=== PATIENT | male | born 1960 | race Caucasian/White ===

== ENCOUNTER 2018-09-24 17:43 | Inpatient (IN) ==
[2018-09-24] MEDS ORDERED: ROCEPHIN 1 GM in NS 50 ML IV ONE (18:10)
[2018-09-24] MEDS ORDERED: DUONEB (A & A) INH ONE (18:10)
[2018-09-24] MEDS ORDERED: NS 1,000 ML IV ONE (18:10)
[2018-09-24] MEDS ORDERED: ZITHROMAX PO ONE (18:10)
[2018-09-24] MEDS ORDERED: SOLU-MEDROL IV ONE (18:11)
[2018-09-24 19:05] LABS: BASO# 0.03 X1000 (0.0-0.2); BASO% 0.3 % (0.0-0.8); EOS# 0.23 X1000 (0.0-0.7); EOS% 2.5 % (0.0-10.0); HEMATOCRIT 38.3 % (42.0-52.0); HEMOGLOBIN 12.3 g/dL (14.0-18.0); IMM GRAN# 0.02 X1000 (0.0-0.04); IMM GRAN% 0.2 % (0.0-0.5); LYMPH# 2.36 X1000 (1.2-3.4); LYMPH% 26.1 % (20.5-51.1); MCH 31.6 PG (27-31); MCHC 32.1 g/dL (33-37); MCV 98.5 FL (81-99); MONO# 0.64 X1000 (0.11-0.59); MONO% 7.1 % (1.7-9.3); MPV 11.1 FL (7.4-10.4); NEUT# 5.77 X1000 (1.4-6.5); NEUT% 63.8 % (42.2-75.2); PLT 183 X1000 (130-400); RBC 3.89 XMIL (4.7-6.1); RDW 14.9 % (11.5-14.5); WBC 9.05 X1000 (4.8-10.8)
[2018-09-24 19:31] LABS: AGAP 8; ALB/GLOB RATIO 2.1; ALBUMIN 3.9 g/dL (3.5-5.0); ALKALINE PHOSPHATASE 54 U/L (32-122); BUN 12 mg/dL (8-22); CALCIUM 8.4 mg/dL (8.8-10.2); CHLORIDE 104 mmol/L (98-107); CK PROFILE 73 U/L (24-204); COSMO 274; ESTIMATED GFR > 60; GLUCOSE 99 mg/dL (70-104); GOT 18 U/L (10-34); GPT 15 U/L (10-44); POTASSIUM 3.3 mmol/L (3.5-5.1); SODIUM 137 mmol/L (136-145); TCO2 25 mmol/L (25-35); TOTAL BILIRUBIN 1.62 mg/dL (0.20-1.00); TOTAL PROTEIN 5.8 g/dL (6.3-8.3)
--- NOTE | 2018-09-24 20:31 | PROVIDER DOCUMENTATION ---
This chart was entered by Amparo Pierson Scribe, acting as scribe for Sergio Bill MD. HPI-Respiratory General - General Chief Complaint: Shortness of Breath Stated Complaint: low oxygen Time Seen by Provider: 09/24/18 17:55 Source: patient Allergies/Adverse Reactions: Patient Allergies Allergy/AdvReac Type Severity Reaction Status Date / Time morphine Allergy Intermediate ITCHING Verified 03/08/18 11:24 Home Medications: Home Medication List Medication Instructions Recorded Confirmed Last Taken Type ATORVAstatin [Lipitor] 40 mg PO DAILY 08/27/17 03/14/18 03/14/18 10:00 History Alprazolam 1 mg PO BID 08/27/17 03/14/18 03/14/18 10:00 History Celecoxib 200 mg PO BID 08/27/17 03/14/18 03/12/18 10:00 History Diclofenac Sodium [Voltaren] 1 gm TP PRN PRN 08/27/17 03/14/18 03/07/18 10:00 History Esomeprazole [Nexium] 40 mg PO DAILY 08/27/17 03/14/18 03/14/18 10:00 History Gabapentin 800 mg PO 5XDAY 08/27/17 03/14/18 03/14/18 10:00 History Carisoprodol 350 mg PO BID 10/14/17 03/14/18 03/14/18 10:00 History Tiotropium [place] Inhaler 1 puff INH RTDAILY 10/14/17 03/14/18 03/14/18 10:00 History [Spiriva] Tramadol [Ultram] 50 mg PO TID 10/14/17 03/14/18 03/13/18 10:00 History Fluticasone/Sal[place] 500/50 INH 1 puff INH BID 03/08/18 03/14/18 03/14/18 12:00 History [Advair 500/50 Diskus] Oxycodone HCl 1 tab PO TID 03/08/18 03/14/18 03/14/18 10:00 History Testosterone [Androgel] 1.25 gm TD DAILY 03/08/18 03/14/18 03/12/18 20:00 History Trazodone [Desyrel] 400 mg PO QHS 03/14/18 03/14/18 Unknown History Oxycodone HCl [Dazidox] 10 mg PO Q4HR PRN #35 tab 03/15/18 Unknown Rx Sulfamethoxazole/Trimethoprim 1 ea PO BID #30 tab 03/15/18 Unknown Rx [Bactrim Ds Tablet] - History of Present Illness-Resp Nature of Presenting Problem: Pt is 57/M presents to ED w/ SOB, cough and weakness. Pt has O2 4L at home as needed, but has not been using it. Pt had o2 stat at 74%. hx of COPD and asthma. Pt is a former smoker. Quality of Pain: reports: other (SOB) Severity in ED: reports: moderate Onset/Duration: reports: gradual Timing: reports: still present Cough Quality/Degree: reports: moderate Episode Frequency: chronic episodes Modifying Factors: improves with: coughing Associated Symptoms: reports: cough, short of breath. denies: wheezing Similar Symptoms Previously?: Yes Recently seen or treated by another doctor?: No Review of Systems - Adult - REVIEW OF SYSTEMS - ADULT Constitutional: reports: no symptoms reported. denies: chills, fever Eyes: reports: no symptoms reported Ears, Nose, Mouth & Throat: reports: no symptoms reported Cardiovascular: reports: no symptoms reported. denies: chest pain Respiratory: reports: cough (productive cough), shortness of breath. denies: wheezing Gastrointestinal: reports: no symptoms reported. denies: nausea, vomiting Genitourinary: reports: no symptoms reported Musculoskeletal: reports: no symptoms reported Integumentary: reports: no symptoms reported Neurological: reports: no symptoms reported. denies: dizziness/vertigo, headache/migraines Psychiatric: reports: no symptoms reported Endocrine: reports: no symptoms reported Hematologic/Lymphatic: reports: no symptoms reported Allergic/Immunologic: reports: no symptoms reported All Other Systems: Reviewed and Negative Past History - Adult - PAST MEDICAL HISTORY-ADULT Review of Records: reports: Old Records Reviewed, Nursing Assessment Review, Medications Reviewed, Social history reviewed & non-contributory. Major Childhood Illnesses: reports: denies history Cardiovascular: reports: CHF Respiratory: reports: asthma, COPD Gastrointestinal: reports: denies history Obstetrical/Gynecological: reports: denies history Genitourinary: reports: denies history Musculoskeletal: reports: denies history Neurological: reports: denies history Psychiatric: reports: anxiety, other (panic attacks) Endocrine/Immune: reports: denies history Other Conditions: reports: denies history - PRIOR SURGERIES/PROCEDURES Surgical/Procedure History: reports: reviewed, not pertinent, cholecystectomy, other (upper lobectomy) - PRIOR HOSPITALIZATIONS Prior Hospitalizations: reports: none - IMMUNIZATION STATUS Childhood Immunizations: See Nurse Assessment Flu Vaccine: See Nurse Assessment - FAMILY HISTORY Family History: reviewed, not pertinent Physical Exam-General - PHYSICAL EXAM-ADULT Initial Vital Signs Reviewed: Yes - CONSTITUTIONAL General Appearance: appears well, alert, no apparent distress - EYES Eyes: PERRL/EOMI, pink conjunctivae - HEAD, EARS, NOSE, MOUTH & THROAT HENMT: normocephalic/atraumatic, moist mucous membranes, normal ENT inspection, TMs normal, pharynx normal - NECK Neck: non-tender, full range of motion, supple, normal inspection - RESPIRATORY Respiratory: lungs clear - CARDIOVASCULAR Cardiovascular: regular rate, rhythm - GASTROINTESTINAL (ABDOMEN) Abdominal Exam: normal bowel sounds, non tender, soft - LYMPHATIC Lymphatic: no adenopathy - MUSCULOSKELETAL Back Exam: normal inspection, no CVA tenderness, no vertebral tenderness Extremity: normal range of motion, non-tender, normal gait, normal inspection - SKIN Integumentary: normal color, warm/dry - NEUROLOGIC Neurologic: grossly normal - PSYCHIATRIC Psych/Mental Status: normal mood/affect, normal thought content, normal thought process, oriented x 3 Progress - PLAN OF CARE/RESULTS Progress/Plan/Lab Results: Vital Signs - 8 hr 09/24/18 17:47 09/24/18 17:59 09/24/18 18:00 Temperature 98.5 F Pulse Rate 94 H 84 Respiratory Rate 22 13 Blood Pressure 117/72 128/71 O2 Sat by Pulse Oximetry 88 L 87 L 87 L 09/24/18 18:01 09/24/18 18:10 09/24/18 18:20 Temperature Pulse Rate 93 H 91 H 86 Respiratory Rate 15 19 16 Blood Pressure 135/83 O2 Sat by Pulse Oximetry 88 L 84 L 87 L 09/24/18 18:24 09/24/18 18:30 09/24/18 18:32 Temperature Pulse Rate 94 H 83 90 Respiratory Rate 18 18 20 Blood Pressure 102/79 O2 Sat by Pulse Oximetry 91 L 94 L 09/24/18 18:40 09/24/18 18:50 09/24/18 19:11 Temperature Pulse Rate 89 84 83 Respiratory Rate 20 14 24 Blood Pressure O2 Sat by Pulse Oximetry 88 L 87 L 90 L 09/24/18 19:13 09/24/18 19:20 09/24/18 19:30 Temperature Pulse Rate 83 80 84 Respiratory Rate 15 14 19 Blood Pressure 105/63 O2 Sat by Pulse Oximetry 89 L 89 L 90 L 09/24/18 19:31 09/24/18 19:40 Temperature Pulse Rate 82 85 Respiratory Rate 17 16 Blood Pressure 102/71 O2 Sat by Pulse Oximetry 89 L 89 L Laboratory Results - last 24 hr 09/24/18 09/24/18 09/24/18 18:46 18:46 18:46 WBC 9.05 RBC 3.89 L Hgb 12.3 L Hct 38.3 L MCV 98.5 MCH 31.6 H MCHC 32.1 L RDW Std Deviation 14.9 H Plt Count 183 MPV 11.1 H Immature Gran % (Auto) 0.2 Neut % (Auto) 63.8 Lymph % (Auto) 26.1 [place] % (Auto) 7.1 Eos % (Auto) 2.5 Baso % (Auto) 0.3 Immature Gran # (Auto) 0.02 Neut # (Auto) 5.77 Lymph # (Auto) 2.36 [place] # (Auto) 0.64 H Eos # (Auto) 0.23 Baso # (Auto) 0.03 Sodium 137 Potassium 3.3 L Chloride 104 Carbon Dioxide 25 Anion Gap 8 BUN 12 Creatinine 1.0 Estimated GFR/1.73 m2 > 60 BUN/Creatinine Ratio 12 Glucose 99 Calculated Osmolality 274 Calcium 8.4 L Total Bilirubin 1.62 H AST 18 ALT 15 Alkaline Phosphatase 54 Creatine Kinase 73 Troponin T < 0.010 Total Protein 5.8 L Albumin 3.9 Globulin 1.9 Albumin/Globulin Ratio 2.1 Orders Category Date Time Status Saline Loc NOW Care 09/24/18 18:10 Active CHEST-2 VIEWS [RAD] Stat Exams 09/24/18 18:10 Taken CBC WITH ELECTRONIC DIFF [HEME] Stat Lab 09/24/18 18:46 Completed CK PROFILE [SP CHEM] Stat Lab 09/24/18 18:46 Completed COMPREHENSIVE METABOLIC PANEL [CHEM] Stat Lab 09/24/18 18:46 Completed D-DIMER [COAG] Stat Lab 09/24/18 20:26 Ordered TROPONIN T Stat Lab 09/24/18 18:46 Completed 0.9% Sodium Chloride Inj [Ns] 1,000 ml Med 09/24/18 18:10 Discontinued IV 999 mls/hr Albuterol 2.5MG/Ipratrop 0.5MG [Duoneb (A & A)] Med 09/24/18 18:10 Discontinued 3 ml INH NOW ONE Azithromycin [Zithromax] Med 09/24/18 18:10 Discontinued 500 mg PO NOW ONE CefTRIAXONE [Rocephin] 1 gm Med 09/24/18 18:10 Discontinued 0.9% Sodium Chloride Inj [Ns] 50 ml IV NOW Methylprednisolone Sod Succ [Solu-Medrol] Med 09/24/18 18:11 Discontinued 80 mg IV NOW ONE Aerosol Treatments Routine Oth 09/24/18 18:11 Completed Aerosol Treatments Stat Oth 09/24/18 18:11 Completed EKG [EKG] Stat Ther 09/24/18 18:10 Ordered A/P: COPD exacerbation. Hypoxia. will admit to Dr Witt. neeta dc. Result Diagrams: 09/24/18 18:46 09/24/18 18:46 - XRAY 1 XRAY Study: Chest Impression: Abnormal (patchy infiltrate in R middle lobe) Departure - Departure Date of Disposition Decision: 09/24/18 Time of Disposition Decision: 20:30 DIAGNOSIS: COPD with exacerbation, Dyspnea, Hypoxia Disposition: ADMITTED INPATIENT 09 Certified Medical Emergency: Emergent Condition: Stable Additional Freetext Instructions: We have examined and treated you today on an emergency basis only. This was not a substitute for, or an effort to provide, complete medical care. In most cases, you must let your doctor check you again. Tell your doctor about any new or lasting problems. We cannot recognize and treat all injuries or illnesses in one Emergency Department visit. If you had special tests, such as X-rays or CT scans, will be reviewed by radiologist and will call you if there are any new suggestions Follow up with primary care provider in 1 to 2 days if no improvement. If you do not have a primary care provider, you need to choose one as soon as possible. Take medicines as prescribed. Monitor for any side effects or adverse events from medications. If any side effect, adverse event or rash develops, or if you suspect any other adverse reaction to the medication, then discontinue the medication immediately and contact clinic /PCP or go to the nearest ER. Narcotic meds / sedative meds instruction - patent advised not to drive, operate any machinery or go into water after taking meds as it may impair mental abilit y to react to the situation in an appropriate manner. Continue other current medicines. Follow up with PCP within 24-48 hours, or sooner if symptoms worsen or fail to improve. Patient / guardian verbalizes understanding of treatment plan, medication, and side effects and agrees with treatment plan. Patient leaves ER in stable condition and ambulatory state. Return to ER as needed. Discharge instructions reviewed verbally and given to patient in written form. Follow up with primary care provider. Referrals and Follow-Ups: Anthony Velasquez MD [Primary Care Provider] - - Critical Care Note This patient required my direct & personal management of CC.: No Attestation - Physician/ DARRYL Attestation Patient care was provided by Advanced Practice Provider:: No The physician spent face to face time with patient:: Yes Advanced Practice Provider documentation review:: Supervising physician onsite and consulted in the evaluation and care of this patient. The physician did have a face to face encounter with the patient. This chart was documented by the indicated scribe, (Amparo Pierson, Miriam) and accurately reflects the services I performed and decisions made by me, Sergio Bill MD, as attested by the provider's signature.
[2018-09-24] MEDS ORDERED: KLOR-CON PO ONE (21:36)
--- NOTE | 2018-09-24 21:52 | HISTORY AND PHYSICAL ---
PRIMARY CARE PHYSICIAN: Dr. Velasquez. CHIEF COMPLAINT: Shortness of breath. HISTORY OF PRESENTING ILLNESS: A 57-year-old male with a history of COPD on home oxygen, hyperlipidemia who presented to emergency department with several days history of worsening shortness of breath. The patient states that he was having difficulty, turned up his oxygen however he did have any improvement. He was seen in the ER, he was somewhat dyspneic and he was also having low oxygen saturations and due to his presenting symptoms, it was thought that he would need admission for further management. At the time of my examination, patient denied any headache, fever, chills, chest pain, hemoptysis, melena, but complained of shortness of breath. PAST MEDICAL HISTORY: Includes COPD, hyperlipidemia. PAST SURGICAL HISTORY: Right upper lobe lobectomy, cholecystectomy. ALLERGIES: Morphine. CURRENT MEDICATIONS: Xanax 1 mg p.o. b.i.d., Lipitor 40 mg p.o. daily, Soma 350 mg p.o. b.i.d., Celebrex 200 mg p.o. b.i.d., Nexium 40 mg p.o. daily, gabapentin 800 mg 5 times a day, oxycodone 10 mg p.o. q.4 hours, trazodone 400 mg p.o. at bedtime. SOCIAL HISTORY: Is a former smoker. History of social alcohol use. Denies any illicit drug use. FAMILY HISTORY: Positive for coronary disease mother. REVIEW OF SYSTEMS: Fourteen point review of systems is as in HPI. Other systems negative. PHYSICAL EXAMINATION: GENERAL: Cooperative, friendly male he is resting more comfortably now. VITAL SIGNS: Temperature 98.5 degrees, pulse 94, respirations 22, blood pressure 117/72, he is saturating 80%. HEENT: Atraumatic, normocephalic. Extraocular movements intact. PERRLA. NECK: No masses. CHEST: Rhonchi. CARDIOVASCULAR: Regular rate and rhythm. ABDOMEN: Soft. Positive bowel sounds. EXTREMITIES: No edema. NEURO: He is awake, alert, oriented x3. : No bladder distention. SKIN: Warm. LABORATORIES AND STUDIES: WBC 9.05, hemoglobin 12.2, hematocrit 38.3, platelets 183,000. Sodium 137, potassium 3.3, chloride 104, CO2 25, BUN is 12, creatinine 1.0, glucose 99, troponin 0.010. ASSESSMENT: 57-year-old male with a history of chronic obstructive pulmonary disease and hyperlipidemia presented to emergency department with several days history of worsening shortness of breath. He was evaluated in the emergency department. He was somewhat dyspneic and had low O2 saturation and subsequently was thought that he would need admission for further management. 1. Chronic obstructive pulmonary disease exacerbation. 2. Hyperlipidemia. PLAN: 1. We will admit patient to medical floor with telemetry. 2. Continue with having patient on IV Solu-Medrol, IV antibiotics, duo nebs. 3. Restart his home medications. 4. Put patient on DVT prophylaxis with SCDs. 5. We will continue to follow and reassess. Make further recommendation based on patient's clinical course. cc: Bhavik Witt MD
--- NOTE | 2018-09-24 21:58 | Diag Imaging Result Doc PS360 ---
EXAM: CHEST-2 VIEWS INDICATION: sob TECHNIQUE: 3 views COMPARISON: 10/14/2017 FINDINGS: There is mild stable linear scarring in the right upper lung zone. The lungs are grossly clear, otherwise. There is no discrete pleural fluid collection or pneumothorax. The cardiomediastinal silhouette and central vasculature are grossly unremarkable. IMPRESSION: No evidence of acute pathology by plain radiograph. Electronically signed by Kevin Colunga 09/24/2018 9:56 PM
[2018-09-25] MEDS ORDERED: ZOFRAN IV PRN (00:51)
[2018-09-25] MEDS: DUONEB (A & A) INH SCH ×7 (03:14→22:30)
[2018-09-25] MEDS: SOLU-MEDROL IV SCH ×3 (04:30→19:12)
[2018-09-25 07:51] LABS: BASO# 0.01 X1000 (0.0-0.2); BASO% 0.1 % (0.0-0.8); EOS# 0.01 X1000 (0.0-0.7); EOS% 0.1 % (0.0-10.0); HEMATOCRIT 40.8 % (42.0-52.0); HEMOGLOBIN 12.8 g/dL (14.0-18.0); IMM GRAN# 0.04 X1000 (0.0-0.04); IMM GRAN% 0.5 % (0.0-0.5); LYMPH% 7.7 % (20.5-51.1); MCH 31.6 PG (27-31); MCHC 31.4 g/dL (33-37); MCV 100.7 FL (81-99); MONO# 0.14 X1000 (0.11-0.59); MONO% 1.8 % (1.7-9.3); MPV 11.8 FL (7.4-10.4); NEUT# 6.97 X1000 (1.4-6.5); NEUT% 89.8 % (42.2-75.2); PLT 205 X1000 (130-400); RBC 4.05 XMIL (4.7-6.1); RDW 15.4 % (11.5-14.5); WBC 7.77 X1000 (4.8-10.8)
[2018-09-25 08:06] LABS: AGAP 9; BUN 12 mg/dL (8-22); CALCIUM 8.6 mg/dL (8.8-10.2); CHLORIDE 104 mmol/L (98-107); COSMO 281; ESTIMATED GFR > 60; GLUCOSE 239 mg/dL (70-104); SODIUM 137 mmol/L (136-145); TCO2 24 mmol/L (25-35)
[2018-09-25 08:11] LABS: BANDS 2 % (0-1); EOS 2 % (1-10); LYMPHS 8 % (21-51); MONO 2 % (1-9); SEGS 86 % (42-75)
[2018-09-25] MEDS ORDERED: VOLTAREN 1% GEL TOP PRN (11:07)
[2018-09-25] MEDS ORDERED: PATIENT'S OWN MED IM SCH (11:15)
[2018-09-25] MEDS: LIPITOR PO SCH (11:58)
[2018-09-25] MEDS: CELEBREX PO SCH ×2 (11:58→21:52)
[2018-09-25] MEDS: SOMA PO SCH ×2 (11:58→21:52)
[2018-09-25] MEDS: NEURONTIN PO SCH ×4 (11:58→21:52)
[2018-09-25] MEDS: XANAX PO SCH ×2 (11:59→21:52)
[2018-09-25] MEDS: OXY IR PO SCH ×2 (11:59→19:09)
[2018-09-25] MEDS: DEXILANT PO SCH (12:02)
--- NOTE | 2018-09-25 14:19 | PROGRESS NOTE ---
DATE: 09/25/2018 SUBJECTIVE: Mr. Brock was admitted yesterday. A patient of Dr. Velasquez, who came in shortness of breath. A 57-year-old with history of COPD, home oxygen, hyperlipidemia, who presented to the emergency department with a several-day history of worsening shortness of breath. He has been having difficulty. He turned up his oxygen, did not have any improvement, went to the emergency room, complained of dyspnea at rest. Oxygen saturations seemed to be low at home. PAST MEDICAL HISTORY: COPD on home oxygen, hyperlipidemia. PAST SURGICAL HISTORY: Right upper lobe lobectomy, cholecystectomy. ASSESSMENT AND PLAN: Chronic obstructive pulmonary disease exacerbation with some bronchospasm, hypoxemia. The patient put on IV Solu-Medrol, IV antibiotics. Seems to be better. Resting comfortably. Sleeping and breathing comfortably this afternoon. REVIEW OF ORDERS: He is on DuoNeb q.4 h. Xanax 1 mg b.i.d. Lipitor 40 mg a day. Soma 350 mg b.i.d. Celebrex 200 mg b.i.d. Dexilant 60 mg daily. He takes diclofenac gel or Voltaren gel and puts it on 4 times a day. Neurontin 800 mg he takes 5 times a day. Methylprednisolone 60 mg IV q.8 h. Oxy IR 20 mg t.i.d. He is getting azithromycin and he got 1 dose in the emergency room. I believe he was given a dose of ceftriaxone, too. His x-ray on presentation no evidence of any infiltrate. Seems to be doing better. Continue present treatment. cc: Suresh Bertrand MD
[2018-09-25] MEDS: PATIENT'S OWN MED INH SCH (18:28)
[2018-09-25] MEDS: ZITHROMAX 500 MG/NS 500 MG/250 ML IVPB IV SCH (22:54)
[2018-09-26] MEDS: DUONEB (A & A) INH SCH ×6 (03:00→21:55)
[2018-09-26] MEDS: OXY IR PO SCH ×3 (09:14→17:16)
[2018-09-26] MEDS: XANAX PO SCH ×2 (09:15→20:51)
[2018-09-26] MEDS: SOMA PO SCH ×2 (09:15→20:57)
[2018-09-26] MEDS: CELEBREX PO SCH ×2 (09:15→20:51)
[2018-09-26] MEDS: LIPITOR PO SCH (09:15)
[2018-09-26] MEDS: PATIENT'S OWN MED INH SCH (09:15)
[2018-09-26] MEDS: DEXILANT PO SCH (09:15)
[2018-09-26] MEDS: NEURONTIN PO SCH ×5 (09:15→20:51)
--- NOTE | 2018-09-26 17:52 | PROGRESS NOTE ---
DATE: 09/26/2018 SUBJECTIVE: He is a patient of Dr. Anthony Velasquez. A 57-year-old presented with shortness of breath. Has a history of COPD on home oxygen, hyperlipidemia. Presented to the emergency room after a several day history of increased shortness of breath. Admitted to through the emergency room. In the ER he was somewhat dyspneic and had low oxygen saturations and so I put him. Yesterday morning he was quite upset that nobody had seen him by 9 o'clock in the morning. When I came to see him which was closer to 12, he was sound asleep and in fact, difficult to arouse. I shook him and he slept very sound sleep. I came back later on and he was awake. He has repeatedly requested for more pain medicine recently. He has been reduced on his pain medicines in the clinic. OBJECTIVE: On today's exam he did not appear short of breath. He was eating lunch. No sign of wheezing. He was quite upset that he was not getting some pain medicine. When I asked about where his pain was, he pointed to his abdomen. I did not find any tenderness. When I asked him about his breathing, he said he did not feel it was any better. I did not see any wheezing. His respiratory rate was 12. Talking without any difficulty. ASSESSMENT AND PLAN: I discussed with him that if his breathing is giving him trouble we are going to have to decrease his sedation. Right now he is on Xanax 1 mg b.i.d. and he is getting oxycodone 20 mg 3 times a day. He got very upset with the idea that I was going to reduce his oxycodone or his Xanax. So, I told him I would leave him at the present place. If his breathing is not improving, which I do not see any problem with his air or gas exchange at this point, but if his breathing is not improving, we are going to have to cut down on the level of his pain medicine. He reported that he has recently been reduced because of Federal regulations and he refuses to go down any further on his pain medicine. He is on Neurontin 800 mg 5 times a day, he is on oxycodone IR 20 mg t.i.d., and he is on Xanax 1 mg b.i.d. I think we ought to get a blood gas in the morning, check another chest x-ray, and see if we are making any progress. His chest x- ray on arrival there was no acute evidence of any infiltrate. He has no bronchospasm at the present time and his electrolytes and renal function look unremarkable. cc: Suresh Bertrand MD
[2018-09-26] MEDS: ZITHROMAX 500 MG/NS 500 MG/250 ML IVPB IV SCH (21:57)
[2018-09-27] MEDS: DUONEB (A & A) INH SCH ×6 (02:30→23:07)
[2018-09-27 07:11] LABS: BASO# 0.01 X1000 (0.0-0.2); BASO% 0.1 % (0.0-0.8); EOS# 0.14 X1000 (0.0-0.7); EOS% 0.9 % (0.0-10.0); HEMATOCRIT 36.9 % (42.0-52.0); HEMOGLOBIN 11.3 g/dL (14.0-18.0); IMM GRAN# 0.07 X1000 (0.0-0.04); IMM GRAN% 0.4 % (0.0-0.5); LYMPH# 2.14 X1000 (1.2-3.4); LYMPH% 13.1 % (20.5-51.1); MCH 31.6 PG (27-31); MCHC 30.6 g/dL (33-37); MCV 103.1 FL (81-99); MONO# 0.99 X1000 (0.11-0.59); MPV 11.3 FL (7.4-10.4); NEUT# 13.04 X1000 (1.4-6.5); NEUT% 79.5 % (42.2-75.2); PLT 173 X1000 (130-400); RBC 3.58 XMIL (4.7-6.1); RDW 17.1 % (11.5-14.5); WBC 16.39 X1000 (4.8-10.8)
[2018-09-27 07:37] LABS: AGAP 7; BUN 20 mg/dL (8-22); CALCIUM 8.3 mg/dL (8.8-10.2); CHLORIDE 103 mmol/L (98-107); COSMO 282; CREATININE 1.1 mg/dL (0.7-1.2); ESTIMATED GFR > 60; GLUCOSE 99 mg/dL (70-104); POTASSIUM 4.3 mmol/L (3.5-5.1); SODIUM 140 mmol/L (136-145); TCO2 30 mmol/L (25-35)
[2018-09-27 08:24] LABS: ALLEN TEST YES; BE 3.1 mmoll (-3.0-3.0); BLOOD TYPE ARTERIAL; HCO3-(ACT) 27.1 mmoll (20.0-26.0); METHB 1.3 % (0.0-1.5); O2(CT) 14.5 mL/dL (15.0-23.0); PCO2(98.6) 46 mmHg (35-45); PO2(98.6) 75 mmHg (60-100); SAMPLE BLOOD; SAO2 91.1 % (95.0-100.0); THB 11.7 g/dL (11.5-17.4)
[2018-09-27 08:26] LABS: MODALITY CANNULA
[2018-09-27] MEDS: OXY IR PO SCH ×3 (08:48→21:42)
[2018-09-27] MEDS: SOMA PO SCH ×2 (08:49→21:42)
[2018-09-27] MEDS: DEXILANT PO SCH (08:49)
[2018-09-27] MEDS: CELEBREX PO SCH ×2 (08:50→21:42)
[2018-09-27] MEDS: NEURONTIN PO SCH ×5 (08:50→21:41)
[2018-09-27] MEDS: LIPITOR PO SCH (08:50)
[2018-09-27] MEDS: XANAX PO SCH ×2 (08:50→21:43)
[2018-09-27] MEDS: PATIENT'S OWN MED INH SCH (08:56)
--- NOTE | 2018-09-27 09:41 | Diag Imaging Result Doc PS360 ---
CHEST-2 VIEWS - 09/27/2018 INDICATION: sob COMPARISON: 09/24/2018 FINDINGS: Stable surgical suture lines in the right perihilar lung. There is some questionable infiltrate developing at the lateral right lung base. There is some stable interstitial scarring in the costophrenic angles. No pneumothorax or pleural effusion. Heart size is normal. IMPRESSION: Hazy infiltrate in the right lung base consistent with bronchopneumonia. Electronically signed by Laurent Sultana 09/27/2018 9:39 AM
[2018-09-27] MEDS: MAXIPIME 2 GM in NS 100 ML IV SCH (16:13)
[2018-09-27] MEDS: ZYVOX 600 MG/D5W 600 MG/300 ML IVPB IV SCH (17:26)
--- NOTE | 2018-09-27 18:57 | PROGRESS NOTE ---
DATE: 09/27/2018 SUBJECTIVE: The patient is sitting up in bed eating lunch. He states that he still feels short of breath. He is currently on 5 L of supplemental oxygen. OBJECTIVE: Vital signs: Temperature 98.6 degrees, blood pressure 124/83, heart rate 100, respirations 20, O2 saturation is 90% on 5 L nasal cannula.General: This is a chronically ill- appearing male lying in bed in no acute distress. Head normocephalic, atraumatic. Heart: S1, S2 normal. Tachycardic. Lungs: Diminished breath sounds bilaterally. No crackles. No wheezing. Abdomen: Positive bowel sounds. Soft, nontender, nondistended. Extremities: No edema, no cyanosis. No calf tenderness. Neurologic: The patient is alert and oriented x4. LABORATORY DATA: White blood cell count 16, hemoglobin 11, hematocrit 36, platelets 173,000. Sodium 140, potassium 4.3, BUN 20, creatinine 1.1, glucose 99. DIAGNOSTIC DATA: Chest x-ray shows right base infiltrate consistent with pneumonia. ASSESSMENT AND PLAN: 1. Acute on chronic hypoxemic respiratory failure. The patient has chronic obstructive pulmonary disease and he also has pneumonia. We will start the patient on cefepime and Zyvox. Continue with bronchodilator therapy. 2. Pneumonia. Intravenous antibiotics have been started. We will also order a sputum culture and blood cultures. 3. Chronic obstructive pulmonary disease exacerbation. Continue with bronchodilator therapy and supplemental oxygen. 4. Dyslipidemia. Continue on Lipitor. 5. Anxiety disorder. Continue on Xanax. 6. Deep vein thrombosis prophylaxis. We will start the patient on Lovenox. cc: MD INES Dubose
[2018-09-27] MEDS: LOVENOX SUBQ SCH (21:43)
[2018-09-28] MEDS: DUONEB (A & A) INH SCH ×6 (03:20→23:50)
[2018-09-28] MEDS: MAXIPIME 2 GM in NS 100 ML IV SCH ×2 (04:14→17:06)
[2018-09-28] MEDS: ZYVOX 600 MG/D5W 600 MG/300 ML IVPB IV SCH ×2 (04:48→17:44)
[2018-09-28] MEDS: SOLU-MEDROL IV SCH ×3 (06:54→23:53)
[2018-09-28 07:46] LABS: BASO# 0.02 X1000 (0.0-0.2); BASO% 0.2 % (0.0-0.8); EOS# 0.18 X1000 (0.0-0.7); EOS% 1.7 % (0.0-10.0); HEMATOCRIT 42.1 % (42.0-52.0); IMM GRAN# 0.14 X1000 (0.0-0.04); IMM GRAN% 1.3 % (0.0-0.5); LYMPH# 1.49 X1000 (1.2-3.4); LYMPH% 13.8 % (20.5-51.1); MCH 31.6 PG (27-31); MCHC 30.9 g/dL (33-37); MCV 102.2 FL (81-99); MONO# 0.36 X1000 (0.11-0.59); MONO% 3.3 % (1.7-9.3); MPV 11.3 FL (7.4-10.4); NEUT# 8.61 X1000 (1.4-6.5); NEUT% 79.7 % (42.2-75.2); PLT 194 X1000 (130-400); RBC 4.12 XMIL (4.7-6.1); RDW 17.1 % (11.5-14.5)
[2018-09-28 07:49] LABS: AGAP 9; BUN 19 mg/dL (8-22); CALCIUM 8.5 mg/dL (8.8-10.2); CHLORIDE 102 mmol/L (98-107); COSMO 283; ESTIMATED GFR > 60; GLUCOSE 98 mg/dL (70-104); POTASSIUM 3.8 mmol/L (3.5-5.1); SODIUM 141 mmol/L (136-145); TCO2 30 mmol/L (25-35)
[2018-09-28] MEDS ORDERED: FIORICET PO ONE (08:10)
[2018-09-28] MEDS: LIPITOR PO SCH (08:36)
[2018-09-28] MEDS: CELEBREX PO SCH ×2 (08:36→20:30)
[2018-09-28] MEDS: DEXILANT PO SCH (08:36)
[2018-09-28] MEDS: PATIENT'S OWN MED INH SCH (08:37)
[2018-09-28] MEDS: NEURONTIN PO SCH ×5 (08:37→20:31)
[2018-09-28] MEDS: OXY IR PO SCH ×3 (09:10→20:30)
[2018-09-28] MEDS: XANAX PO SCH ×2 (09:10→20:31)
[2018-09-28] MEDS: SOMA PO SCH ×2 (09:10→20:30)
--- NOTE | 2018-09-28 16:10 | PROGRESS NOTE ---
DATE: 09/28/2018 SUBJECTIVE: The patient states that he has been having a headache since last night. OBJECTIVE: Vital Signs: Temperature 98.6 degrees, blood pressure 124/74, heart rate 112, respirations 20, O2 saturation 91% on 5 L nasal cannula. General: This is a chronically ill- appearing male sitting up in bed in no acute distress. Heart: S1, S2 normal. Tachycardic. Lungs: Diminished breath sounds bilaterally. No crackles. No wheezing. Abdomen: Positive bowel sounds. Soft, nontender, nondistended. Extremities: No edema, no cyanosis. Neurologic: The patient is alert and oriented x4. No focal neurologic deficits noted. LABS: White blood cell count 10, hemoglobin 13, hematocrit 42 platelets 194. Sodium 141, potassium 3.8, chloride 102, CO2 30. BUN 19, creatinine 1, glucose 98. ASSESSMENT AND PLAN: 1. Acute on chronic hypoxemic respiratory failure. Continue to treat the underlying pneumonia and chronic obstructive pulmonary disease. We will consult Pulmonary. 2. Pneumonia. Continue with antibiotic therapy and bronchodilator therapy. 3. Chronic obstructive pulmonary disease exacerbation. Continue on intravenous steroids, bronchodilator therapy and supplemental oxygen. 4. Dyslipidemia. Continue on Lipitor. 5. Anxiety disorder. Continue on Xanax. 6. Headache. Will give the patient a dose of Fioricet and monitor his response. 7. Deep vein thrombosis prophylaxis. Continue on Lovenox. cc: Phoebe De La Cruz MD
--- NOTE | 2018-09-28 16:37 | Diag Imaging Result Doc PS360 ---
EXAM: CT HEAD W/O CONTRAST 09/28/2018 HISTORY: headaches TECHNIQUE: This exam was performed using automated exposure control, adjustment of mA or kV according to patient size, and/or use of iterative reconstruction technique. COMMENT: There are no previous studies available for comparison. There is no evidence of mass effect, bleed, abnormal extra-axial fluid collection, or hydrocephalus. The visualized paranasal sinuses are clear. The calvarium is intact. IMPRESSION: No evidence of acute intracranial disease. Electronically signed by Dsehawn Antonio 09/28/2018 4:34 PM
--- NOTE | 2018-09-28 19:51 | CONSULTATION ---
DATE OF CONSULTATION: 09/28/2018 REQUESTING PROVIDER: Dr. Phoebe De La Cruz. REASON FOR CONSULTATION: Pneumonia. HISTORY OF PRESENT ILLNESS: This is a 57-year-old male with a medical history of COPD on home oxygen, asthma, anxiety, congestive heart failure, hyperlipidemia, chronic back pain, and gastroesophageal reflux disease. He presented to the ER on 09/24/2018 with worsening shortness of breath, cough and weakness. Initial workup in the ER revealed COPD exacerbation. He has been admitted to the medical floor for further evaluation and management. The patient currently is resting in bed. He initially appears anxious and easily to get upset. Later, he becomes very pleasant and cooperative. He is on nasal cannula at 5 L/minute and tolerates well. He had been on Ventimask from September 24 to September 26. He reports he is feeling better, but he still has severe shortness of breath with minimal activities. He shows some signs of confusion at times and pulls off nasal cannula several times during my visit. He reports he had severe headache at an earlier time and it is getting better now. He reports chronic cough with sputum at times, chronic fatigue and dyspnea on exertion. He has no wheezing, chest pain, palpitation, dizziness, vertigo, nausea, vomiting, constipation or diarrhea. PAST MEDICAL HISTORY: 1. COPD on home oxygen as needed since 08/2017, followed by our office. Last PFT on 09/01/2018 showed minimal COPD with FEV1 81% of predicted. 2. Asthma. 3. Anxiety 4. Congestive heart failure 5. Hyperlipidemia . 6. Chronic back pain. 7. Gastroesophageal reflux disease. 8. Drug-induced erectile dysfunction. 9. Hypogonadism. PAST SURGICAL HISTORY: 1. Right upper lobectomy over 16 years ago. 2. Cholecystectomy. 3. Artificial erection while injection of pharmacologic agent and insertion of inflatable penile prosthesis on 03/14/2018. SOCIAL HISTORY: The patient lives alone at home. He is a former smoker and had smoked for 6-1/2 years totally. He quit smoking a long time ago. He drinks occasionally. He has no history of illicit drug use. FAMILY HISTORY: Positive for coronary artery disease, diabetes and lung cancer. ALLERGIES: Morphine. REVIEW OF SYSTEMS: A 10-point review of systems was conducted and the pertinent is listed within the HPI. Otherwise, noncontributory. PHYSICAL EXAMINATION: Vital Signs: Temperature 99.0, blood pressure 134/83, pulse 124, respiratory rate 20, oxygen saturation 91% on nasal cannula at 5 L/minute. General: Chronically ill-appearing, mildly anxious, resting in bed. Appears older than stated age. HEENT: Atraumatic. Trachea midline. Mucosa pink and slightly dry. Respiratory: Respirations even and unlabored. Symmetrical excursion. Auscultation reveals diminished breathing sounds bilaterally. Cardiovascular: Regular rate and rhythm. Gastrointestinal: Normoactive bowel sounds in all 4 quadrants. Soft, nontender, nondistended. Extremities: No pedal edema. No cyanosis, no clubbing. Dorsalis pedis 1+ bilaterally. Neurologic: Alert and oriented x 3 with confusion noted at times. Speech fluent. Follows commands. LAB DATA: White blood cells 10.80, hemoglobin 13.0, hematocrit 42.1, platelets 194,000. Sodium 141, potassium 3.8, chloride 102, carbon dioxide 30, BUN 19, creatinine 1.0, glucose 98. ABG: pH 7.40, pCO2 46, PO2 75, HC03 27.1, base excess 3.1 and oxyhemoglobin 88.0. IMAGING DATA: Chest x-ray on 09/27/2018 showed hazy infiltrate in the right lung base consistent with bronchopneumonia. ASSESSMENT: This is a 57-year-old male with a medical history of COPD on home oxygen, asthma, hyperlipidemia, chronic back pain, gastroesophageal reflux disease, anxiety and congestive heart failure. He has been admitted to the medical floor since 09/24/2018 with COPD exacerbation, bronchospasm and acute on chronic hypoxemic respiratory failure. 1. Acute on chronic hypoxemic respiratory failure. 2. Bronchopneumonia in the right lower lung zone. 3. Chronic obstructive pulmonary disease. PLAN: 1. Continue supplemental oxygen. 2. Continue antibiotic, steroid and bronchodilators. 3. Follow up with CBC, BMP, sputum culture and blood culture. 4. CXR and ABG if indicated. 5. Continue DVT prophylaxis. 6. Further recommendations pending hospital course. Thank you for the courtesy of this consult. Dictated by ODILIA Vargas for Corin An MD cc: ODILIA Vargas MD [facility]
[2018-09-28] MEDS: LOVENOX SUBQ SCH ×2 (20:31→20:40)
[2018-09-28] MEDS: MIRALAX PO SCH (20:31)
[2018-09-29] MEDS: DUONEB (A & A) INH SCH ×6 (03:55→23:15)
[2018-09-29] MEDS: MAXIPIME 2 GM in NS 100 ML IV SCH ×2 (04:02→15:43)
[2018-09-29] MEDS: ZYVOX 600 MG/D5W 600 MG/300 ML IVPB IV SCH ×2 (04:02→17:22)
[2018-09-29] MEDS: SOLU-MEDROL IV SCH ×3 (06:29→21:31)
[2018-09-29] MEDS: DEXILANT PO SCH (06:29)
[2018-09-29 07:21] LABS: BASO# 0.03 X1000 (0.0-0.2); BASO% 0.2 % (0.0-0.8); HEMATOCRIT 35.9 % (42.0-52.0); HEMOGLOBIN 11.4 g/dL (14.0-18.0); IMM GRAN# 0.21 X1000 (0.0-0.04); IMM GRAN% 1.1 % (0.0-0.5); LYMPH% 6.4 % (20.5-51.1); MCH 31.9 PG (27-31); MCHC 31.8 g/dL (33-37); MCV 100.6 FL (81-99); MONO# 0.81 X1000 (0.11-0.59); MONO% 4.3 % (1.7-9.3); MPV 11.3 FL (7.4-10.4); NEUT# 16.44 X1000 (1.4-6.5); PLT 229 X1000 (130-400); RBC 3.57 XMIL (4.7-6.1); RDW 16.7 % (11.5-14.5); WBC 18.69 X1000 (4.8-10.8)
[2018-09-29 07:40] LABS: AGAP 9; BUN 19 mg/dL (8-22); CALCIUM 9.2 mg/dL (8.8-10.2); CHLORIDE 99 mmol/L (98-107); COSMO 284; ESTIMATED GFR > 60; GLUCOSE 201 mg/dL (70-104); POTASSIUM 4.2 mmol/L (3.5-5.1); SODIUM 138 mmol/L (136-145); TCO2 30 mmol/L (25-35)
[2018-09-29] MEDS: NEURONTIN PO SCH ×2 (08:51→11:55)
[2018-09-29] MEDS: LIPITOR PO SCH (08:51)
[2018-09-29] MEDS: OXY IR PO SCH ×3 (08:51→21:30)
[2018-09-29] MEDS: XANAX PO SCH ×2 (08:51→21:30)
[2018-09-29] MEDS: CELEBREX PO SCH ×2 (08:51→21:33)
[2018-09-29] MEDS: MIRALAX PO SCH ×2 (08:51→21:35)
[2018-09-29] MEDS: SOMA PO SCH ×2 (08:51→21:30)
[2018-09-29] MEDS: PATIENT'S OWN MED INH SCH (10:05)
[2018-09-29] MEDS ORDERED: MILK OF MAGNESIA PO ONE (15:36)
[2018-09-29] MEDS ORDERED: MOTRIN PO ONE (15:36)
[2018-09-29] MEDS ORDERED: MUCINEX PO ONE (15:36)
--- NOTE | 2018-09-29 18:31 | PROGRESS NOTE ---
DATE: 09/29/2018 SUBJECTIVE: The patient is complaining of a headache. He does continue to complain of shortness of breath, also. OBJECTIVE: Vital Signs: Temperature 97.4 degrees, blood pressure 151/83, heart rate 90, respirations 18, O2 saturation 92% on 4 L nasal cannula. General: This is a chronically ill- appearing elderly male, sitting up in bed in no acute distress. Heart: S1, S2 normal. Regular rate and rhythm. Lungs: Equal air entry bilaterally. No wheezing. No rales. No rhonchi. Abdomen: Positive bowel sounds. Soft, nontender, nondistended. Extremities: No edema, no cyanosis. Neurologic: The patient is forgetful, but alert and oriented. LABS: White blood cell count 18, hemoglobin 11, hematocrit 35, platelets 229,000. Sodium 138, potassium 4.2, chloride 99, CO2 30, BUN 19, creatinine 1, glucose 201. ASSESSMENT AND PLAN: 1. Acute on chronic hypoxemic respiratory failure. Continue to treat the pneumonia and chronic obstructive pulmonary disease. 2. Pneumonia. Continue with antibiotics and bronchodilator therapy. 3. Chronic obstructive pulmonary disease exacerbation. Continue on intravenous steroids, bronchodilator therapy, and supplemental oxygen. 4. Anxiety disorder. Continue on Xanax. 5. Headaches. The patient's head CT was negative. Will start Topamax. 6. Deep vein thrombosis prophylaxis. Continue on Lovenox. 7. The plan of care was discussed with the patient today at the bedside. cc: Phoebe De La Cruz MD
[2018-09-29] MEDS: LOVENOX SUBQ SCH ×2 (21:31→21:37)
[2018-09-29] MEDS: MUCINEX PO SCH (21:46)
[2018-09-30] MEDS: DUONEB (A & A) INH SCH ×4 (03:06→15:52)
[2018-09-30] MEDS: FIORICET PO PRN ×2 (04:19→09:19)
[2018-09-30] MEDS: ZYVOX 600 MG/D5W 600 MG/300 ML IVPB IV SCH (04:20)
[2018-09-30] MEDS: MAXIPIME 2 GM in NS 100 ML IV SCH ×2 (04:20→15:32)
--- NOTE | 2018-09-30 06:34 | Diag Imaging Result Doc PS360 ---
EXAM: CHEST-1 VIEW HISTORY: SOB TECHNIQUE: Chest single view COMPARISON: 09/27/2018 FINDINGS: The lungs are well expanded. The heart is not enlarged. The vessels are mildly distended. There are no infiltrates. Atelectasis or scarring in the mid right lung. No effusion identified. IMPRESSION: Mild pulmonary edema. No definite pneumonia. Electronically signed by Ervin Casas 09/30/2018 6:31 AM
[2018-09-30] MEDS: SOLU-MEDROL IV SCH (06:54)
[2018-09-30] MEDS: DEXILANT PO SCH (06:54)
[2018-09-30 07:18] LABS: HEMATOCRIT 37.7 % (42.0-52.0); HEMOGLOBIN 11.3 g/dL (14.0-18.0); MCH 31.9 PG (27-31); MCV 106.5 FL (81-99); MPV 11.8 FL (7.4-10.4); RBC 3.54 XMIL (4.7-6.1); RDW 17.9 % (11.5-14.5); WBC 17.28 X1000 (4.8-10.8)
[2018-09-30 07:49] LABS: AGAP 10; BUN 23 mg/dL (8-22); CALCIUM 8.6 mg/dL (8.8-10.2); CHLORIDE 101 mmol/L (98-107); COSMO 281; CREATININE 0.9 mg/dL (0.7-1.2); ESTIMATED GFR > 60; GLUCOSE 202 mg/dL (70-104); SODIUM 136 mmol/L (136-145); TCO2 25 mmol/L (25-35)
[2018-09-30] MEDS ORDERED: TOPAMAX PO SCH (09:00)
[2018-09-30] MEDS: SOMA PO SCH (09:12)
[2018-09-30] MEDS: LIPITOR PO SCH (09:12)
[2018-09-30] MEDS: MUCINEX PO SCH (09:13)
[2018-09-30] MEDS: XANAX PO SCH (09:13)
[2018-09-30] MEDS: OXY IR PO SCH ×2 (09:13→15:31)
[2018-09-30] MEDS: MIRALAX PO SCH (09:13)
[2018-09-30] MEDS: CELEBREX PO SCH (09:13)
[2018-09-30] MEDS: PATIENT'S OWN MED INH SCH (09:26)
[2018-09-30 11:54] LABS: HEMOGLOBIN A1C 3.9 % (4.8-6.0)
[2018-09-30] MEDS ORDERED: IMITREX PO ONE (13:02)
[2018-09-30 14:00] VITALS: BP 129/82
[2018-09-30] MEDS ORDERED: TORADOL IV ONE (16:50)
--- NOTE | 2018-09-30 17:26 | PROGRESS NOTE ---
DATE: 09/30/2018 SUBJECTIVE: The patient is complaining of a headache. OBJECTIVE: Vital Signs: Temperature 97.8 degrees, blood pressure 129/82, heart rate 92, respirations 18, O2 saturation 91% on 5 L nasal cannula. General: This is a chronically ill- appearing, elderly male lying in bed in no acute distress. Heart: S1, S2. Normal. Lungs: Equal air entry bilaterally. No crackles. No rales. Abdomen: Positive bowel sounds. Soft, nontender, nondistended. Extremities: No edema, no cyanosis. Neurologic: The patient is alert and oriented. LABS: White blood cell count 17, hemoglobin 11, hematocrit 37, platelets 144. Sodium 136, potassium 5, BUN 23, creatinine 0.6, glucose 202. Chest x-ray shows mild pulmonary edema. ASSESSMENT AND PLAN: 1. Acute on chronic hypoxemic respiratory failure. 2. Pneumonia. Continue with antibiotics and bronchodilator therapy. 3. Persistent headache. Will give the patient a dose of Imitrex and monitor his response. Continue on Topamax. We will also consult with Neurology. 4. Chronic obstructive pulmonary disease exacerbation. Continue on IV steroids, bronchodilator therapy and supplemental oxygen. 5. Anxiety disorder. Continue on Xanax. 6. Leukocytosis. This is likely steroid induced. We will start weaning the patient's steroids. 7. Steroid-induced hyperglycemia. We will monitor the patient's blood sugar closely. 8. Constipation. Continue with scheduled laxative therapy. 9. Deep vein thrombosis prophylaxis. Continue on Lovenox. cc: Phoebe De La Cruz MD
[2018-09-30] MEDS ORDERED: SOLU-MEDROL IV SCH (18:00)
--- NOTE | 2018-10-10 20:02 | DISCHARGE SUMMARY ---
ADMISSION DATE: 09/24/2018 DISCHARGE DATE: 09/30/2018 FINAL DISCHARGE DIAGNOSES: 1. Acute on chronic hypoxemic respiratory failure. 2. Pneumonia. 3. Chronic obstructive pulmonary disease. 4. Anxiety disorder. 5. Steroid-induced hyperglycemia. 6. Leukocytosis. 7. Constipation. CONSULTATIONS: Pulmonary consultation, with Dr. An. IMAGIN. Portable chest x-ray, performed on 09/24/2018, that revealed no acute pathology. 2. Head CT, performed on 09/28/2018, which revealed no acute disease. 3. Chest x-ray, performed on 09/30/2018, which revealed mild pulmonary edema. HOSPITAL COURSE: Mr. Brock is a 58-year-old male, with a history of multiple medical problems, who presented to the ER with a chief complaint of shortness of breath and cough. On admission, a chest x-ray was done that was noted to be unremarkable. The patient was admitted and started on IV steroids, antibiotics, scheduled bronchodilator therapy and supplemental oxygen. The patient required a high amount of supplemental oxygen, so a repeat x-ray was done that revealed right lobe pneumonia. In light of this finding, the patient's antibiotics were adjusted and Pulmonary was consulted. The patient slowly improved over the course of the hospital stay. However, the patient opted to leave against medical advice on 09/30/2018 because he stated that he did not like the food in the hospital. The patient was advised that he was not cleared for discharge yet. The patient stated that he was willing to take the risk of leaving the hospital before his treatment plan was complete. The patient left the hospital against medical advice. cc: MD Anthony Dubose MD
== END 2018-09-30 17:59 | disposition left against medical advice (07) | DRG 193 ==
LOC: 3N 17:43 → ED 17:43 → SUATTDRO 22:53 → OBSVTOIN 22:53
PROVIDERS: ATTEND Internal Medicine
CPT/HCPCS: 70450; 71010; 71020; 71045; 71046; 80048; 80053; 82550; 82805; 83036; 84484; 85025; 85027; 85379; 87040; 93005; 94640; 94761; 94799; 96361; 96365; 96366; 96375; 99285; A9270; J0456; J0692; J0696; J1650; J2020; J2920; J2930; J7030

== ENCOUNTER 2018-10-11 15:56 | Inpatient (IN) ==
[2018-10-11] MEDS ORDERED: LEVAQUIN 750 MG/D5W 750 MG/150 ML IVPB IV SCH (17:00)
[2018-10-11 17:32] LABS: URINE SOURCE CLEAN CATCH
[2018-10-11 17:44] LABS: BILIRUBIN URINE NEGATIVE (NEGATIVE); BLOOD URINE NEGATIVE (NEGATIVE); COLOR YELLOW; GLUCOSE URINE NEGATIVE (NEGATIVE); KETONE URINE NEGATIVE (NEGATIVE); LEUKOCYTES URINE NEGATIVE (NEGATIVE); NITRITE URINE NEGATIVE (NEGATIVE); PROTEIN URINE NEGATIVE (NEGATIVE); SP GRAVITY URINE 1.007; TURBIDITY URINE CLEAR (CLEAR); UROBILINOGEN URINE NORMAL (NORMAL)
[2018-10-11 17:45] LABS: UR EPITHELIAL CELLS <10 /HPF (<10); URINE BACTERIA NEGATIVE /HPF; URINE RBC <10 /HPF (<10); URINE WBC <10 /HPF (<10)
[2018-10-11 17:45] LABS: BASO# 0.03 X1000 (0.0-0.2); BASO% 0.2 % (0.0-0.8); EOS# 0.14 X1000 (0.0-0.7); EOS% 0.8 % (0.0-10.0); HEMATOCRIT 34.6 % (42.0-52.0); HEMOGLOBIN 10.9 g/dL (14.0-18.0); IMM GRAN% 0.3 % (0.0-0.5); LYMPH# 1.11 X1000 (1.2-3.4); LYMPH% 6.1 % (20.5-51.1); MCH 31.4 PG (27-31); MCHC 31.5 g/dL (33-37); MCV 99.7 FL (81-99); MONO# 0.59 X1000 (0.11-0.59); MONO% 3.2 % (1.7-9.3); MPV 10.8 FL (7.4-10.4); NEUT# 16.34 X1000 (1.4-6.5); NEUT% 89.4 % (42.2-75.2); PLT 186 X1000 (130-400); RBC 3.47 XMIL (4.7-6.1); RDW 19.2 % (11.5-14.5); WBC 18.26 X1000 (4.8-10.8)
[2018-10-11 17:46] LABS: IMM GRAN# 0.05 X1000 (0.0-0.04)
--- NOTE | 2018-10-11 17:53 | PROVIDER DOCUMENTATION ---
This chart was entered by Araceli Bruno Scribe, acting as scribe for Saravanan Oglesby MD. HPI-General Adult - General Chief Complaint: General Adult Stated Complaint: DIZZY/LIGHT HEADED/RX REQUEST Time Seen by Provider: 10/11/18 16:50 Source: patient Allergies/Adverse Reactions: Patient Allergies Allergy/AdvReac Type Severity Reaction Status Date / Time morphine Allergy Intermediate ITCHING Verified 03/08/18 11:24 Home Medications: Home Medication List Medication Instructions Recorded Confirmed Last Taken Type ATORVAstatin [Lipitor] 40 mg PO DAILY 08/27/17 09/24/18 03/14/18 10:00 History Alprazolam 1 mg PO BID 08/27/17 09/24/18 03/14/18 10:00 History Celecoxib 200 mg PO BID 08/27/17 09/24/18 03/12/18 10:00 History Diclofenac Sodium [Voltaren] 1 gm TP PRN PRN 08/27/17 09/24/18 03/07/18 10:00 History Gabapentin 800 mg PO 5XDAY 08/27/17 09/24/18 03/14/18 10:00 History Carisoprodol 350 mg PO BID 10/14/17 09/24/18 03/14/18 10:00 History Tramadol [Ultram] 100 mg PO BID 10/14/17 09/25/18 03/13/18 10:00 History Trazodone [Desyrel] 500 mg PO QHS 03/14/18 09/25/18 Unknown History Dexlansoprazole [Dexilant] 60 mg PO DAILY 09/24/18 09/24/18 Unknown History Oxycodone HCl [Dazidox] 20 mg PO TID 09/24/18 09/24/18 Unknown History Testosterone Cypionate 0.75 ml IM DIRECTED 09/24/18 09/24/18 Unknown History Fluticasone/Umeclidin/Vilanter 1 puff INH DAILY 09/25/18 09/25/18 Unknown History [Joann Vo 100-62.5-25] - History of Present Illness -Gen Adult Nature of Presenting Problems: Patient is a 58 year old male who presents with lightheadedness, dizziness and fever that started this morning. States he thinks he has pneumonia. Does not report shortness of breath. Dr Morales called to ask for patient to be readmitted for worsening of pneumonia. Location of Pain/Injury: reports: none Pain Radiation: reports: no radiation Quality of Pain: reports: none Severity: reports: mild Onset/Duration: reports: this morning Timing: reports: still present Context/Activities at Onset: reports: light activity Modifying Factors: improves with: coughing Associated Symptoms: reports: dizziness, fever/chills (fever), other (lightheadedness) Similar Symptoms Previously?: Yes Recently seen or treated by another doctor?: Yes Review of Systems - Adult - REVIEW OF SYSTEMS - ADULT Constitutional: reports: see HPI, fever. denies: chills, fatique Eyes: reports: no symptoms reported Ears, Nose, Mouth & Throat: reports: no symptoms reported Cardiovascular: reports: no symptoms reported Respiratory: reports: no symptoms reported Gastrointestinal: reports: no symptoms reported Genitourinary: reports: no symptoms reported Musculoskeletal: reports: no symptoms reported Integumentary: reports: no symptoms reported Neurological: reports: see HPI, dizziness/vertigo (dizziness), other (lightheadedness). denies: headache/migraines, seizure, syncope Psychiatric: reports: no symptoms reported Endocrine: reports: no symptoms reported Hematologic/Lymphatic: reports: no symptoms reported Allergic/Immunologic: reports: no symptoms reported All Other Systems: Reviewed and Negative Past History - Adult - PAST MEDICAL HISTORY-ADULT Review of Records: reports: Old Records Reviewed, Nursing Assessment Review, Medications Reviewed, Social history reviewed & non-contributory. Major Childhood Illnesses: reports: denies history Cardiovascular: reports: CHF, hyperlipidemia Respiratory: reports: asthma, COPD, pneumonia Gastrointestinal: reports: denies history Obstetrical/Gynecological: reports: denies history Genitourinary: reports: denies history Musculoskeletal: reports: denies history Neurological: reports: denies history Psychiatric: reports: anxiety, other (panic attacks) Endocrine/Immune: reports: denies history Other Conditions: reports: denies history - PRIOR SURGERIES/PROCEDURES Surgical/Procedure History: reports: reviewed, not pertinent, cholecystectomy, other (upper lobectomy) - PRIOR HOSPITALIZATIONS Prior Hospitalizations: reports: none - IMMUNIZATION STATUS Childhood Immunizations: See Nurse Assessment Flu Vaccine: See Nurse Assessment - FAMILY HISTORY Family History: reviewed, not pertinent - SOCIAL HISTORY Smoking: cigarettes (former) Substance Use: alcohol Alcohol Use Frequency: occasionally Living Situation: family Physical Exam-General - PHYSICAL EXAM-ADULT Initial Vital Signs Reviewed: Yes - CONSTITUTIONAL General Appearance: alert, no apparent distress. negative: lethargic, slow to respond - HEAD, EARS, NOSE, MOUTH & THROAT HENMT: normocephalic/atraumatic, moist mucous membranes. negative: angioedema, hearing deficit - RESPIRATORY Respiratory: chest non-tender, normal breath sounds, decreased breath sounds (Lt lower). negative: crackles, stridor, wheezing - CARDIOVASCULAR Cardiovascular: normal peripheral pulses, regular rate, rhythm. negative: tachycardia, systolic murmur - GASTROINTESTINAL (ABDOMEN) Abdominal Exam: normal bowel sounds, non tender, soft. negative: guarding, rebound - MUSCULOSKELETAL Extremity: non-tender, normal inspection. negative: deformity, erythema, swelling - SKIN Integumentary: normal color, normal turgor, warm/dry. negative: cyanosis, ecchymosis, erythema, jaundice - NEUROLOGIC Neurologic: grossly normal. negative: aphasia, facial droop - PSYCHIATRIC Psych/Mental Status: normal mood/affect, oriented x 3. negative: anxious Progress - PLAN OF CARE/RESULTS Progress/Plan/Lab Results: Vital Signs - 8 hr 10/11/18 15:59 Temperature 99.3 F Pulse Rate 99 H Respiratory Rate 17 Blood Pressure 125/81 O2 Sat by Pulse Oximetry 92 L Orders Category Date Time Status CHEST-1 VIEW [RAD] Stat Exams 10/11/18 16:50 Ordered BLOOD CULTURE [BLDCUL] Stat Lab 10/11/18 16:50 Uncollected CBC WITH ELECTRONIC DIFF [HEME] Stat Lab 10/11/18 16:50 Uncollected COMPREHENSIVE METABOLIC PANEL [CHEM] Stat Lab 10/11/18 16:50 Uncollected URINALYSIS [URINALYSIS] Stat Lab 10/11/18 16:50 Uncollected EKG [EKG] Stat Ther 10/11/18 16:50 Ordered Result Diagrams: 10/11/18 17:15 - XRAY 1 XRAY Study: Chest Impression: Abnormal, See EMR Report ( Patient: LANG PATEL Date: 10/11/18MR#: [id number] : 1960ADM Status: [facility]#: [id number] Age/Sex: 58/MRoom/Bed: Loc: RAD Ordering Physician: Anthony Velasquez MD Family Physician: Anthony Velasquez MD Reason for Procedure: PNA F/U ___ Signed EXAM: CHEST-2 VIEWS HISTORY: PNA F/U TECHNIQUE: Chest two views 10/01/2018 COMPARISON: None. FINDINGS: Interval development of dense infiltrates in the mid and lower left lung. The right lung remains well expanded and clear. No cardiomegaly. No pulmonary edema. There are sutures in the mid right lung. IMPRESSION: Development of left-sided pneumonia. Electronically signed by Ervin Casas 10/11/2018 3:58 PM 10/11/18 1558 Interpreting Physician: Ervin Casas MD Dictated Date/Time: 10/11/18 1557 cc: Anthony Velasquez MD; Anthony Velasquez MD) - CONSULTS/PCP/HOSPITALIST Notification #1 *Consult/PCP/Hospitalist*: Dr. Vincent Time Discussed: 17:47 Reason/Comments: Dr. Oglesby consulted with Dr. Vincent about patient. Consult Disposition: Admit Departure - Departure Date of Disposition Decision: 10/11/18 Time of Disposition Decision: 17:47 DIAGNOSIS: Dyspnea, Pneumonia Disposition: ADMITTED INPATIENT 09 Certified Medical Emergency: Emergent Condition: Fair Referrals and Follow-Ups: Anthony Velasquez MD [Primary Care Provider] - - Critical Care Note This patient required my direct & personal management of CC.: No Attestation - Physician/ DARRYL Attestation Patient care was provided by Advanced Practice Provider:: No The physician spent face to face time with patient:: Yes Advanced Practice Provider documentation review:: Supervising physician onsite and consulted in the evaluation and care of this patient. The physician did have a face to face encounter with the patient. This chart was documented by the indicated scribe, (Araceli Bruno Scribe) and accurately reflects the services I performed and decisions made by me, Saravanan Oglesby MD, as attested by the provider's signature.
[2018-10-11] MEDS ORDERED: LEVAQUIN 500 MG/D5W 500 MG/100 ML IVPB IV ONE (17:55)
[2018-10-11 18:15] LABS: AGAP 9; ALB/GLOB RATIO 1.6; ALBUMIN 4.2 g/dL (3.5-5.0); ALKALINE PHOSPHATASE 62 U/L (32-122); BUN 12 mg/dL (8-22); CALCIUM 8.8 mg/dL (8.8-10.2); CHLORIDE 99 mmol/L (98-107); COSMO 269; CREATININE 1.1 mg/dL (0.7-1.2); ESTIMATED GFR > 60; GLUCOSE 91 mg/dL (70-104); GOT 15 U/L (10-34); GPT 16 U/L (10-44); POTASSIUM 3.7 mmol/L (3.5-5.1); SODIUM 135 mmol/L (136-145); TCO2 27 mmol/L (25-35); TOTAL BILIRUBIN 1.17 mg/dL (0.20-1.00); TOTAL PROTEIN 6.8 g/dL (6.3-8.3)
[2018-10-11 18:30] LABS: ALLEN TEST YES; BE 1.2 mmoll (-3.0-3.0); BLOOD TYPE ARTERIAL; HCO3-(ACT) 25.8 mmoll (20.0-26.0); METHB 0.3 % (0.0-1.5); MODALITY CANNULA; O2(CT) 12.8 mL/dL (15.0-23.0); O2HB 91.9 % (95.0-99.0); PCO2(98.6) 34 mmHg (35-45); PO2(98.6) 74 mmHg (60-100); SAMPLE BLOOD; SAO2 96.4 % (95.0-100.0); THB 9.8 g/dL (11.5-17.4); pH(98.6) 7.47 (7.35-7.45)
[2018-10-11] MEDS ORDERED: DUONEB (A & A) INH PRN (19:03)
[2018-10-11] MEDS ORDERED: ZOFRAN IV PRN (19:06)
[2018-10-11] MEDS ORDERED: TYLENOL PO PRN (19:06)
--- NOTE | 2018-10-11 19:23 | HISTORY AND PHYSICAL ---
CHIEF COMPLAINT: Shortness of breath and cough. HISTORY OF PRESENT ILLNESS: This is a 58-year-old male. He was recently admitted for pneumonia, I think around the . He had a follow-up today with Dr. Velasquez. Still did not feel very well so he came in for treatment for pneumonia. I think he left AMA last admission. I am not 100% sure. Specifically because he did like the food in the hospital, so he left on the . He came in for worsening shortness of breath today. Dr. Velasquez sent him over to the hospital. His chest x-ray shows a persistent left lower lobe pneumonia and he was admitted for treatment. His last x-ray comparatively on the did not show a pneumonia. So, now he has distinct pneumonia there. He does report cough and shortness of breath. He is fairly a kind of easily angered individual. He very much wants to be in control of different aspects, food, when he is able to leave, does not feel like the rules necessarily applied to him, but in any case, patient was sent to the ER for admission for pneumonia failing outpatient therapy. He had been previously on Levaquin. Currently, his white count is 18,000 with 17,000 at discharge. He is not currently on any steroids. PAST MEDICAL HISTORY: 1. COPD. 2. Dyslipidemia. He is on oxygen, but he says he does not wear it all the time. PAST SURGICAL HISTORY: 1. Right upper lobe lobectomy. He feels that was associated with a fungal infection. 2. Cholecystectomy. ALLERGIES: Morphine. MEDICATIONS: He is on trazodone, reportedly 500 at night. He is on Xanax. He is on oxycodone, which he was very adamant that we could not miss his doses. Soma and multiple medications. In any case, the patient will be admitted for pneumonia, mild COPD exacerbation. FAMILY HISTORY: Is reviewed noncontributory. REVIEW OF SYSTEMS: No weight loss. No chest pain. PHYSICAL EXAM: VITAL SIGNS: Currently blood pressure is 130/79, heart rate 90, respiratory 19, temperature 98 degrees, saturating 93% on 3 L. CARDIOVASCULAR: Regular rate and rhythm. EXTREMITIES: No clubbing or cyanosis. LYMPHATIC EXAM: No peripheral edema. NEUROLOGICAL: Exam was nonfocal. PULMONARY EXAM: He had rales at the right base. GI: Soft, nontender, nondistended. Bowel sounds are positive. LABORATORY DATA: His white counts are around 17,000. ASSESSMENT: A 58-year-old male with: 1. Recent pneumonia. We will treat with antibiotics. At this point, though, it is entirely possible this is a hospital-acquired infection. We will continue cefepime, pulmonary toilet and follow closely. 2. Chronic obstructive pulmonary disease appears to be relatively well compensated. We will continue treatment and follow. Advised on tobacco cessation which he has actually stopped. 3. Acute hypoxic respiratory failure. We will continue breathing treatments and monitor closely. cc: MD Anthony Flores MD
[2018-10-11] MEDS: MAXIPIME 2 GM in NS 100 ML IV SCH (19:44)
[2018-10-11] MEDS: DUONEB (A & A) INH SCH ×2 (20:14→23:46)
[2018-10-11] MEDS: SOMA PO SCH (21:27)
[2018-10-11] MEDS: MUCINEX PO SCH (21:28)
[2018-10-11] MEDS: XANAX PO SCH (21:28)
[2018-10-11] MEDS: OXY IR PO SCH (21:28)
[2018-10-12] MEDS: DUONEB (A & A) INH SCH ×6 (03:34→23:10)
[2018-10-12] MEDS ORDERED: LOVENOX SUBQ SCH (06:00)
[2018-10-12] MEDS: MAXIPIME 2 GM in NS 100 ML IV SCH ×2 (08:04→20:35)
[2018-10-12] MEDS ORDERED: OXY IR PO SCH (09:00)
[2018-10-12 09:25] LABS: BASO# 0.01 X1000 (0.0-0.2); BASO% 0.1 % (0.0-0.8); EOS# 0.15 X1000 (0.0-0.7); EOS% 1.8 % (0.0-10.0); HEMOGLOBIN 8.9 g/dL (14.0-18.0); LYMPH# 1.43 X1000 (1.2-3.4); LYMPH% 17.5 % (20.5-51.1); MCH 30.6 PG (27-31); MCHC 29.7 g/dL (33-37); MCV 103.1 FL (81-99); MONO% 4.9 % (1.7-9.3); MPV 11.3 FL (7.4-10.4); NEUT# 6.18 X1000 (1.4-6.5); NEUT% 75.7 % (42.2-75.2); PLT 167 X1000 (130-400); RBC 2.91 XMIL (4.7-6.1); RDW 19.6 % (11.5-14.5); WBC 8.17 X1000 (4.8-10.8)
[2018-10-12] MEDS: OXY IR PO SCH ×3 (09:25→20:34)
[2018-10-12] MEDS: XANAX PO SCH ×2 (09:26→20:34)
[2018-10-12] MEDS: MUCINEX PO SCH ×2 (09:26→20:34)
[2018-10-12] MEDS: SOMA PO SCH ×2 (09:26→20:34)
[2018-10-12 09:58] LABS: AGAP 10; ALB/GLOB RATIO 1.5; ALBUMIN 3.3 g/dL (3.5-5.0); ALKALINE PHOSPHATASE 53 U/L (32-122); BUN 9 mg/dL (8-22); CALCIUM 8.1 mg/dL (8.8-10.2); CHLORIDE 104 mmol/L (98-107); COSMO 279; ESTIMATED GFR > 60; GLUCOSE 90 mg/dL (70-104); GOT 12 U/L (10-34); GPT 12 U/L (10-44); POTASSIUM 3.5 mmol/L (3.5-5.1); SODIUM 141 mmol/L (136-145); TCO2 27 mmol/L (25-35); TOTAL BILIRUBIN 0.49 mg/dL (0.20-1.00); TOTAL PROTEIN 5.5 g/dL (6.3-8.3)
[2018-10-12] MEDS: BENADRYL PO PRN (11:42)
[2018-10-12] MEDS: NEURONTIN PO SCH ×4 (12:09→20:34)
--- NOTE | 2018-10-12 18:15 | PROGRESS NOTE ---
DATE: 10/12/2018 SUBJECTIVE: The patient feels a little bit better today. He is not as angry this morning. He was kind of unpleasant with the nursing staff about multiple I feel like relatively minor issues, but he seems better this evening. He is not super excited about the food. He went down to the cafeteria and bought his own lunch. He is coughing up some stuff. He feels like it is brownish or even somewhat blood tinged, but sputum sample was sent. OBJECTIVE: Vital Signs: Blood pressure is 104/63, heart rate of 93, respiratory rate 15, temperature 98.2, 97% on 4 L. Cardiovascular: Regular rate and rhythm. Pulmonary: He has rhonchi and wheezing. Gastrointestinal: Soft, nontender, nondistended. Bowel sounds are positive. LABORATORY DATA: White count is down to 8 from 18, so much better, hemoglobin 8.9, hematocrit 30, platelets 167,000. Basic was normal. PROBLEM LIST: 1. Left lower lobe pneumonia. This was done as an outpatient so it is not included in his current workup. We will repeat his x-ray tomorrow. Continue antibiotics. Technically since it is hospital acquired, I have put him on cefepime. We will follow up on sputum cultures. 2. Chronic obstructive pulmonary disease. Appears to be relatively well compensated. I did not put him on steroids. He is on breathing treatments. 3. Acute hypoxic respiratory failure. He is on oxygen at baseline, although not quite as high. DISPOSITION: Anticipate discharge in the next 1 to 2 days. Since he had a bit of hemoptysis, I have stopped his Lovenox, and we put him on sequentials. This can be readdressed later. cc: Alfa Vincent MD
[2018-10-12] MEDS: DESYREL PO SCH (21:48)
[2018-10-13] MEDS: DUONEB (A & A) INH SCH ×6 (03:30→22:51)
[2018-10-13 06:18] LABS: BASO# 0.01 X1000 (0.0-0.2); BASO% 0.1 % (0.0-0.8); EOS# 0.22 X1000 (0.0-0.7); EOS% 3.2 % (0.0-10.0); HEMATOCRIT 32.6 % (42.0-52.0); IMM GRAN# 0.02 X1000 (0.0-0.04); IMM GRAN% 0.3 % (0.0-0.5); LYMPH# 1.13 X1000 (1.2-3.4); LYMPH% 16.2 % (20.5-51.1); MCH 31.3 PG (27-31); MCHC 30.7 g/dL (33-37); MCV 101.9 FL (81-99); MONO% 7.2 % (1.7-9.3); MPV 11.2 FL (7.4-10.4); NEUT# 5.09 X1000 (1.4-6.5); PLT 188 X1000 (130-400); RDW 19.3 % (11.5-14.5); WBC 6.97 X1000 (4.8-10.8)
[2018-10-13 06:34] LABS: AGAP 10; BUN 13 mg/dL (8-22); CALCIUM 8.7 mg/dL (8.8-10.2); CHLORIDE 105 mmol/L (98-107); COSMO 281; CREATININE 1.1 mg/dL (0.7-1.2); ESTIMATED GFR > 60; GLUCOSE 98 mg/dL (70-104); POTASSIUM 3.8 mmol/L (3.5-5.1); SODIUM 141 mmol/L (136-145); TCO2 26 mmol/L (25-35)
[2018-10-13] MEDS: SOMA PO SCH ×2 (09:22→21:02)
[2018-10-13] MEDS: MAXIPIME 2 GM in NS 100 ML IV SCH ×2 (09:22→21:04)
[2018-10-13] MEDS: MUCINEX PO SCH ×2 (09:22→21:03)
[2018-10-13] MEDS: XANAX PO SCH ×2 (09:22→21:02)
[2018-10-13] MEDS: OXY IR PO SCH ×3 (09:22→21:03)
[2018-10-13] MEDS: NEURONTIN PO SCH ×6 (09:23→21:02)
[2018-10-13] MEDS: DEXILANT PO SCH (09:23)
--- NOTE | 2018-10-13 10:49 | Diag Imaging Result Doc PS360 ---
EXAM: CHEST-2 VIEWS HISTORY: hypoxia TECHNIQUE: Chest two views COMPARISON: 10/11/2018 FINDINGS: The lungs are well expanded. The heart is not enlarged. The vessels are not distended. Near-complete resolution of the left infiltrates. No pleural effusions. IMPRESSION: Continued interval improvement Electronically signed by Ervin Casas 10/13/2018 10:47 AM
[2018-10-13] MEDS ORDERED: AYR NASAL SPRAY NAS PRN ×2 (15:24→16:00)
--- NOTE | 2018-10-13 16:12 | PROGRESS NOTE ---
DATE: 10/13/2018 INTERVAL HISTORY: No acute events overnight. The patient's vitals were largely within acceptable range, except that he has been needing 4 to 5 L of oxygen. SUBJECTIVE: Complains of hemoptysis today which started yesterday, and he is noticing some flecks of blood every time he spits up. He also had some epistaxis because of nasal irritation. We discussed about pneumonia causing hemoptysis and humidifying his oxygen. He complains of occasional left-sided chest pain when he takes a deep breath. Denies any palpitation. His shortness of breath is better. His chest pain is also in fact better. He is still coughing up with sputum production that is in lab. VITALS: Suggestive of temperature 98.2 degrees, pulse 87, respiratory rate 18, blood pressure 160/72, saturating 96% on 4 L nasal cannula.General: On physical examination, does not appear in acute distress. Oral cavity is moist. Lungs: Air entry bilaterally equal. No wheeze, rhonchi, crackles. Heart: S1, S2 normal. No murmur or gallop. Abdomen: Soft, obese, nontender. No lower extremity edema. LABS: Resolution of leukocytosis, macrocytic anemia, normal platelet count, normal electrolytes. Microbiology: Sputum culture is in lab. ASSESSMENT: 1. Acute hypoxic respiratory failure due to left lower lobe pneumonia. 2. Chronic obstructive pulmonary disease without exacerbation. 3. Chronic hypoxic respiratory failure. 4. Hemoptysis. 5. Hyperlipidemia. PLAN: 1. Continue intravenous antibiotics. 2. Continue albuterol ipratropium nebulization. 3. Continue alprazolam, trazodone and gabapentin for chronic pain, anxiety with oxycodone. DISPOSITION: Continue to monitor patient inside the hospital. cc: Lawrence Burton MD
[2018-10-13] MEDS: BENADRYL PO PRN (18:12)
[2018-10-13] MEDS ORDERED: BLISTEX MEDICATED BERRY LIP BALM TOP PRN (20:25)
[2018-10-13] MEDS: LIPITOR PO SCH (21:02)
[2018-10-13] MEDS: DESYREL PO SCH (21:02)
[2018-10-14] MEDS: DUONEB (A & A) INH SCH ×6 (03:21→23:16)
[2018-10-14 06:20] LABS: BASO# 0.02 X1000 (0.0-0.2); BASO% 0.3 % (0.0-0.8); EOS# 0.25 X1000 (0.0-0.7); HEMATOCRIT 33.7 % (42.0-52.0); HEMOGLOBIN 10.3 g/dL (14.0-18.0); IMM GRAN# 0.02 X1000 (0.0-0.04); IMM GRAN% 0.3 % (0.0-0.5); LYMPH# 1.34 X1000 (1.2-3.4); LYMPH% 21.6 % (20.5-51.1); MCH 31.2 PG (27-31); MCHC 30.6 g/dL (33-37); MCV 102.1 FL (81-99); MONO# 0.41 X1000 (0.11-0.59); MONO% 6.6 % (1.7-9.3); MPV 10.7 FL (7.4-10.4); NEUT# 4.15 X1000 (1.4-6.5); NEUT% 67.2 % (42.2-75.2); PLT 206 X1000 (130-400); RDW 19.1 % (11.5-14.5); WBC 6.19 X1000 (4.8-10.8)
[2018-10-14] MEDS: MUCINEX PO SCH ×2 (09:07→20:22)
[2018-10-14] MEDS: MAXIPIME 2 GM in NS 100 ML IV SCH ×2 (09:08→20:22)
[2018-10-14] MEDS: NEURONTIN PO SCH ×5 (09:08→20:23)
[2018-10-14] MEDS: DEXILANT PO SCH (09:08)
[2018-10-14] MEDS: OXY IR PO SCH ×3 (09:20→20:40)
[2018-10-14] MEDS: SOMA PO SCH ×2 (09:21→20:22)
[2018-10-14] MEDS: XANAX PO SCH ×2 (09:21→20:22)
[2018-10-14] MEDS: NON-FORMULARY MED (Fluticasone/Umeclidin/Vilanter [Trelegy Ellipta 100-62.5-25] 1 PUFF) INH SCH (14:32)
--- NOTE | 2018-10-14 18:35 | PROGRESS NOTE ---
DATE: 10/14/2018 INTERVAL HISTORY: The patient's hemoptysis has resolved. He is still saturating 90 to 94 percent on 3 to 4 L nasal cannula. We discussed about getting a D-dimer. He denies any new complaints today. I also discussed with him about following up with Dr. An outpatient. VITAL SIGNS: Currently, temperature 98 degrees, pulse 83, respiratory rate 16, blood pressure 110/71, saturating 94% on 3 L nasal cannula. PHYSICAL EXAMINATION: General: The patient does not appear in acute distress. HEENT: Oral cavity is moist. Respiratory: Air entry bilaterally equal. No wheezes, rhonchi, crackles. Cardiovascular: S1, S2 normal. No murmur, rub, or gallop. Abdomen: Soft, nontender. No lower extremity edema. I discussed with him about using an incentive spirometry. LABORATORY DATA: Labs suggestive of macrocytic anemia. Normal platelet. Normal electrolytes yesterday. I have ordered a vitamin B12 and folate levels for him. His microbiology sputum culture and blood culture no growth to date. IMAGING: No new imaging today. ASSESSMENT AND PLAN: 1. Acute hypoxic respiratory failure due to left lower lobe pneumonia with history of chronic obstructive pulmonary disease and chronic hypoxic respiratory failure on home oxygen. Continue oxygenation to maintain saturation more than 92%. Continue albuterol ipratropium nebulization. Continue intravenous cefepime. My plan is to discharge him on p.o. antibiotics to complete total of 10 to 14 days of antibiotics considering his recurrent pneumonia. I will follow up with D-dimer to rule out any pulmonary embolism contributing to his hypoxia. Outpatient pulmonology appointment has been set up for him. 2. Hemoptysis likely in the setting of pneumonia and use of non humidified oxygen leading to some epistaxis. With saline nasal spray, it has resolved. His hemoglobin is also stable. 3. Macrocytic anemia. We will follow up with vitamin B12 and folic acid levels. 4. Others. Continue trazodone, alprazolam for history of anxiety and insomnia; continue Soma, gabapentin and oxycodone for history of muscle spasms and chronic pain; proton pump inhibitors for history of chronic gastroesophageal reflux disease. DISPOSITION: The patient appears to be doing well. I advised him to come out of bed sit in the chair for 3 times at meals with nursing team's help. I also discussed with him that if his D- dimer is negative and his shortness of breath is better, my plan is to discharge him home on p.o. antibiotics tomorrow. Today, he is still feeling a little short of breath and wants me to keep him inside the hospital for another day. cc: Lawrence Burton MD
[2018-10-14] MEDS: BENADRYL PO PRN (20:22)
[2018-10-14] MEDS: DESYREL PO SCH (20:23)
[2018-10-14] MEDS: LIPITOR PO SCH (20:23)
[2018-10-15] MEDS: DUONEB (A & A) INH SCH ×3 (03:05→11:38)
[2018-10-15 07:26] LABS: AGAP 11; BUN 9 mg/dL (8-22); CALCIUM 8.4 mg/dL (8.8-10.2); CHLORIDE 101 mmol/L (98-107); COSMO 276; CREATININE 0.9 mg/dL (0.7-1.2); ESTIMATED GFR > 60; GLUCOSE 99 mg/dL (70-104); POTASSIUM 3.7 mmol/L (3.5-5.1); SODIUM 139 mmol/L (136-145); TCO2 27 mmol/L (25-35)
[2018-10-15] MEDS: BENADRYL PO PRN ×2 (07:28→14:29)
[2018-10-15] MEDS: NON-FORMULARY MED (Fluticasone/Umeclidin/Vilanter [Trelegy Ellipta 100-62.5-25] 1 PUFF) INH SCH (08:37)
[2018-10-15] MEDS: OXY IR PO SCH (08:47)
[2018-10-15] MEDS: NEURONTIN PO SCH ×2 (08:49→14:03)
[2018-10-15] MEDS: SOMA PO SCH (08:49)
[2018-10-15] MEDS: XANAX PO SCH (08:49)
[2018-10-15] MEDS: MAXIPIME 2 GM in NS 100 ML IV SCH (08:50)
[2018-10-15] MEDS: DEXILANT PO SCH (08:50)
[2018-10-15] MEDS: MUCINEX PO SCH (08:50)
[2018-10-15 11:57] VITALS: BP 127/76
--- NOTE | 2018-10-15 21:22 | DISCHARGE SUMMARY ---
ADMISSION DATE: 10/11/2018 DISCHARGE DATE: 10/15/2018 DISCHARGE DISPOSITION: Home. DISCHARGE CONDITION: Alert and oriented x3. Denies any chest pain or shortness of breath. He is using 3 L of oxygen through nasal cannula, which is his baseline. Denies undue cough. Denies hemoptysis. DISCHARGE DIAGNOSES: 1. Acute on chronic hypoxic respiratory failure. 2. Left lower lobe pneumonia. 3. Hemoptysis due to pneumonia. 4. Macrocytic anemia. OTHER DIAGNOSES: 1. History of chronic obstructive pulmonary disease. 2. Chronic hypoxic respiratory failure. 3. History of anxiety and insomnia. 4. History of chronic pain and muscle spasms. 5. Chronic gastroesophageal reflux disease. 6. 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 DISCHARGE MEDICATIONS: Alprazolam 1 mg b.i.d., carisoprodol 350 mg b.i.d., celecoxib 200 mg b.i.d., oxycodone 20 mg p.o. t.i.d., dexlansoprazole 60 mg daily, gabapentin 800 mg 5 times a day, atorvastatin 40 mg daily, fluticasone/vilanterol inhaler 1 puff inhaled daily, levofloxacin 750 mg daily. Seven tablets have been prescribed. CONSULTATIONS DURING HOSPITALIZATION: None. FOLLOW-UP AFTER HOSPITALIZATION: We have helped the patient schedule an appointment with Dr. An on 10/19/2018. PHYSICAL EXAMINATION: Vital Signs: At time of discharge, temperature is 98, pulse 96, respiratory rate 20, blood pressure 127/76, saturating 96% on 3 L nasal cannula. General: Patient does not appear in any acute distress. HEENT: Oral cavity is moist. Lungs: Air entry bilaterally equal. No wheezes, rhonchi, or crackles. Cardiovascular: S1, S2 normal. No murmur, rub, or gallop. Abdomen: Soft, nontender. Extremities: No lower extremity edema. Neurologic: He is alert and oriented x3. SIGNIFICANT LABS AT TIME OF DISCHARGE: [place] [address] on presentation, which had decreased to 6000 at the time of discharge. His hemoglobin was 10.3, platelet was 206. His BUN was 9, creatinine 0.9. Urinalysis was unremarkable. Vitamin B12 was 863. Folate was 8.4. Microbiology: Sputum culture and blood culture did not have any growth. IMAGING: He did have imaging performed as an outpatient on 10/11/2018 which had suggested development of left-sided pneumonia. Repeat imaging on 10/13/2018 had continued interval improvement with near-complete resolution of left infiltrate. HOSPITAL COURSE SUMMARY: Mr. Brock is a 58-year-old man with a past medical history of COPD and home oxygen for chronic hypoxic respiratory failure. He was admitted recently for pneumonia around 2 weeks prior to current presentation, and had left on 09/30/2018, likely against medical advice because he did not like the food. He had gone to see his regular doctor for continued shortness of breath. An outpatient chest x-ray was performed which had suggested left lower lobe pneumonia, and so he was sent to the hospital. Inside the hospital, the patient was started on intravenous cefepime, and a repeat chest x-ray was performed 48 hours later which suggested improved improvement in his symptoms and x-ray findings. He was given 5 days of intravenous antibiotics since the patient kept on complaining of not feeling well and not feeling up to his baseline. On the date of discharge, the patient was hemodynamically stable and he was feeling ready to be discharged to home. He was provided a prescription of levofloxacin. While inside the hospital, he also had an episode of hemoptysis, especially early in the morning time. It was also thought to be related to dryness of the upper respiratory tract because of oxygen nasal cannula. The oxygen was later on humidified, following which his hemoptysis had resolved. At the time of admission, the patient was provided detailed discharge instructions about following up with the lung doctor. He was also provided a prescription of levofloxacin. All of his questions were answered. More than 30 minutes spent in discharging this patient. cc: Lawrence Burton MD
== END 2018-10-15 16:00 | disposition home or self-care (01) | DRG 177 ==
LOC: ED 15:56 → 4N 18:25 → SUATTDRO 18:25
PROVIDERS: ATTEND Internal Medicine
CPT/HCPCS: 71020; 71046; 80048; 80053; 81001; 82607; 82746; 82805; 85025; 85379; 87040; 87070; 87205; 93005; 94640; 94761; 94799; 99285; A9270; J0692; J1650